=== PATIENT | female | born 1990 | race Caucasian/White ===

== ENCOUNTER 2016-08-09 07:36 | Emergency (ER) | payer OTHER ==
[~2016-08-09] VITALS: Ht 162.6 cm; Wt 106.4 kg
[~2016-08-09 07:36] MED LIST: MOTRIN400 MG PO; MOTRIN800 MG PO
[2016-08-09 08:40] LABS: ADD MIUA? YES; BILIRUBIN NEGATIVE; BLOOD SMALL; COLOR YELLOW ((YELLOW)); GLUCOSE (STRIP) NEGATIVE; KETONES NEGATIVE; LEUKOCYTES MODERATE; NITRITE NEGATIVE; PROTEIN (STRIP) NEGATIVE; SPECIFIC GRAVITY 1.009 (1.000-1.030); UROBILINOGEN 0.2 MG/DL (0.2-1.0)
[2016-08-09 08:52] LABS: BACTERIA NONE SEEN /HPF; EPITHELIAL CELLS 1+ /HPF; MUCUS NONE SEEN /LPF; RED BLOOD CELLS 15-20 /HPF (0-5); UCUL ADDED? NO; WHITE BLOOD CELLS 30-40 /HPF (0-5)
[2016-08-09 09:08] LABS: HEMATOCRIT 42.7 % (36.0-46.0); MCHC 34.9 G/DL (30.0-36.0); MCV 83.1 FL (83-99); MEAN PLAT.VOLUME 10.6 uM^3 (9.5-12.4); PLATELET COUNT 224 K/uL (156-360); RBC DIS.WIDTH-CV 11.9 % (11.8-14.6); RED BLOOD COUNT 5.14 M/uL (3.80-5.20); WHITE BLOOD COUNT 9.5 K/uL (4.1-10.2)
[2016-08-09] MEDS ORDERED: PYRIDIUM200 MG PO (10:11)
[2016-08-09] MEDS ORDERED: CIPRO500 MG PO (10:11)
[2016-08-09 10:16] LABS: ANION GAP 7 MEQ/L (2-14); CHLORIDE 109 MEQ/L (99-109); SAMPLE HEMOLYSIS CHECK 0; SAMPLE ICTERIC CHECK 0; SAMPLE LIPEMIA CHECK 0; SODIUM 142 MEQ/L (136-147); TOTAL BILIRUBIN 1.6 MG/DL (0.0-1.0)
[2016-08-09 10:22] LABS: ALKALINE PHOSPHATASE 78 IU/L (3-129); GFR ESTIMATE (CALCULATED) > 59 mL/min/; GLUCOSE 101 mg/dL (70-99); LIPASE 8 U/L (1.0-51.0); UREA NITROGEN (BUN) 9 mg/dL (9-23)
[2016-08-09 10:25] LABS: QUANTITATIVE HCG < 4.0 MIU/ML
[2016-08-09 11:28] VITALS: BP 112/70
[2016-08-10] MEDS ORDERED: PERCOCET 5/31 TABLET PO (19:09)
[2016-08-10] MEDS ORDERED: KEFLEX500 MG PO (19:09)
[2016-08-10] MEDS ORDERED: ZOFRAN4 MG PO (19:09)
== END 2016-08-09 11:29 | disposition home or self-care (01) ==
LOC: EME 07:36
PROVIDERS: Physician Assistant Medical
DX: N12 Tubulo-interstitial nephritis, not specified as acute or chronic (principal)
CPT/HCPCS: 80053; 81003; 83690; 84702; 85027; 99281; 99285; J0696; J1885; J2270; J2405; J7030; J7050

== ENCOUNTER 2016-08-10 15:46 | Emergency (ER) | payer OTHER ==
[~2016-08-10] VITALS: Ht 162.6 cm; Wt 109.2 kg
[~2016-08-10 15:46] MED LIST changes: +CIPRO500 MG PO; +PYRIDIUM200 MG PO
[2016-08-10 16:27] LABS: HEMATOCRIT 43.2 % (36.0-46.0); MCH 28.6 PG (29.0-34.0); MCHC 33.8 G/DL (30.0-36.0); MCV 84.5 FL (83-99); MEAN PLAT.VOLUME 9.8 uM^3 (9.5-12.4); PLATELET COUNT 270 K/uL (156-360); RBC DIS.WIDTH-CV 11.9 % (11.8-14.6); RBC DIS.WIDTH-SD 36.1 % (39-53); RED BLOOD COUNT 5.11 M/uL (3.80-5.20); WHITE BLOOD COUNT 7.7 K/uL (4.1-10.2)
[2016-08-10 16:36] LABS: ADD MIUA? YES; BILIRUBIN NEGATIVE; BLOOD NEGATIVE; COLOR AMBER ((YELLOW)); GLUCOSE (STRIP) NEGATIVE; KETONES NEGATIVE; LEUKOCYTES NEGATIVE; NITRITE POSITIVE; PROTEIN (STRIP) NEGATIVE; SPECIFIC GRAVITY 1.005 (1.000-1.030)
[2016-08-10 16:41] LABS: CHLORIDE 105 mEq/L (99-109); POTASSIUM 3.8 mEq/L (3.7-5.4); SODIUM 140 mEq/L (136-147)
[2016-08-10 16:42] LABS: BACTERIA NONE SEEN /HPF; EPITHELIAL CELLS RARE /HPF; MUCUS NONE SEEN /LPF; RED BLOOD CELLS 0-5 /HPF (0-5); WHITE BLOOD CELLS 0-5 /HPF (0-5)
[2016-08-10 16:43] LABS: GLUCOSE 87 mg/dL (70-99)
[2016-08-10 16:45] LABS: ANION GAP 11 MEQ/L (2-14); TOTAL BILIRUBIN 1.3 mg/dL (0.0-1.0)
[2016-08-10 16:47] LABS: ALKALINE PHOSPHATASE 100 IU/L (3-129); GFR ESTIMATE (CALCULATED) > 59 mL/min/
[2016-08-10 16:48] LABS: UREA NITROGEN (BUN) 12 mg/dL (9-23)
[2016-08-10 17:52] LABS: LIPASE 17 U/L (1.0-51.0)
[2016-08-10] MEDS ORDERED: KEFLEX500 MG PO (19:09)
[2016-08-10] MEDS ORDERED: PERCOCET 5/31 TABLET PO (19:09)
[2016-08-10] MEDS ORDERED: ZOFRAN4 MG PO (19:09)
[2016-08-10 19:43] VITALS: BP 110/97
== END 2016-08-10 19:44 | disposition home or self-care (01) ==
LOC: EME 15:46
PROVIDERS: Physician Assistant
DX: N12 Tubulo-interstitial nephritis, not specified as acute or chronic (principal)
CPT/HCPCS: 74176; 80053; 81003; 83690; 85027; 87086; 99281; 99285; J1885; J2270; J2405; J3010; J7030

== ENCOUNTER 2017-06-11 12:51 | Emergency (ER) | payer OTHER ==
[~2017-06-11] VITALS: Ht 177.8 cm; Wt 122.7 kg
[~2017-06-11 12:51] MED LIST changes: +KEFLEX500 MG PO; +PERCOCET 5/31 TABLET PO; +ZOFRAN4 MG PO
[2017-06-11] MEDS ORDERED: ULTRAM50 MG PO (15:00)
[2017-06-11] MEDS ORDERED: MOTRIN600 MG PO (15:00)
[2017-06-11 16:04] VITALS: BP 115/71
== END 2017-06-11 16:04 | disposition home or self-care (01) ==
LOC: EME 12:51
DX: S93.401A Sprain of unspecified ligament of right ankle, initial encounter (principal); X50.1XXA Overexertion from prolonged static or awkward postures, initial encounter; Y92.812 Truck as the place of occurrence of the external cause; Y99.0 Civilian activity done for income or pay
CPT/HCPCS: 73610; 99281; 99284; J3010